=== PATIENT | male | born 1950 | race Caucasian/White ===

== ENCOUNTER → 2022-08-02 10:11 | Outpatient (CLI) | payer MEDICARE, SELFPAY ==
[2022-08-02 11:12] LABS: Add Manual Diff / Slide Review NO; Basophils Absolute Auto 0 /uL (0-100); Basophils Percent Auto 0.6 % (0-2); Eosinophils Absolute Auto 100 /uL (0-450); Eosinophils Percent Auto 3.5 % (2-4); Hematocrit 43.4 % (41-53); Hemoglobin 14.8 g/dL (13.5-17.5); Lymphocytes Absolute Auto 800 /uL (1100-4500); Lymphocytes Percent Auto 18.9 % (25-40); Mean Corpuscular Hemoglobin 28.6 PG (26-34); Mean Corpuscular Volume 84.1 fL (80-100); Monocytes Absolute Auto 400 /uL (0-900); Monocytes Percent Auto 9.7 % (3-14); Neutrophils Absolute Auto 2800 /uL (1500-7000); Neutrophils Percent Auto 67.3 % (50-75); Platelet Count 173 X10^3/uL (150-400); Red Blood Cell Count 5.16 X10^6/uL (4.5-5.9); White Blood Cell Count 4.2 X10^3/uL (4.5-11.0)
[2022-08-02 11:30] LABS: BUN Creatinine Ratio 15.8 (6-22); Blood Urea Nitrogen 21 mg/dL (9-20); Carbon Dioxide 30 mmol/L (22-32); Chloride 101 mmol/L (98-107); Estimated Glomerular Filt Rate 57 mL/min (>60); Glucose 94 mg/dL (80-110); HEMOLYSIS < 15 (0-50); Potassium 4.2 mmol/L (3.4-5.1); Sodium 136 mmol/L (137-145)
== END ==
PROVIDERS: PCP Family Medicine; Referring Provider Orthopaedic Surgery Orthopaedic Surgery of the Spine; Visit Provider Orthopaedic Surgery Orthopaedic Surgery of the Spine
DX: Z01.818 Encounter for other preprocedural examination (principal); Z01.812 Encounter for preprocedural laboratory examination
CPT/HCPCS: 36415; 80048; 85025; 93005

== ENCOUNTER 2022-08-18 11:13 | Outpatient (CLI) | payer MEDICARE, SELFPAY ==
[2022-08-18 14:09] LABS: COVID19 -Nasal RAPID Negative (Negative)
== END 2022-08-20 17:45 | disposition home or self-care (01) ==
LOC: LAB 11:14
PROVIDERS: PCP Family Medicine; Referring Provider Orthopaedic Surgery Orthopaedic Surgery of the Spine; Visit Provider Orthopaedic Surgery Orthopaedic Surgery of the Spine
DX: Z20.822 Contact with and (suspected) exposure to COVID-19 (principal)
CPT/HCPCS: 87635; C9803

== ENCOUNTER 2022-08-20 13:00 | Inpatient (IN) | payer MEDICARE, SELFPAY ==
[2022-08-13 10:51] VITALS: BMI 36.2
[2022-08-20] VITALS (9 sets, daily range): BP systolic 136–156; BP diastolic 61–92; PULSE 69–81; RESP 8–16; TEMP 36.2–36.3; O2SAT 94–98; BMI 35.9
--- NOTE | 2022-08-20 | DI.RAD.S_ITS ---
PROCEDURE: XR LUMBAR SPINE 2-3V INDICATIONS: L3-4 L4-5 LAMINECTOMY TECHNIQUE: 2 views of the lumbar spine were acquired. COMPARISON: [facility], MR, MR LUMBAR SPINE WITHOUT CONTRAST, 07/23/2022, 14:14. Outside Film, CR, XR LUMBAR SPINE 2 OR 3 VIEWS, 06/23/2022, 11:16. [facility] Outside [facility], CR, XR LUMBAR SPINE 2 OR 3 VIEWS, 06/23/2022, 11:16. FINDINGS: There is a surgical port at level of L5-S1. IMPRESSION: Surgical port at L5-S1. Dictated by: Benito Tanner M.D. on 08/22/2022 at 17:25 Approved by: Benito Tanner M.D. on 08/22/2022 at 17:25
[2022-08-20] MEDS: LACTATED RINGERS 1,000 ML 42 ML IV (13:41)
--- NOTE | 2022-08-20 14:13 | PM.PREOP ---
Pre-operative Note COVID-19 COVID-19 status: Negative Result date/Date tested (Pos, Neg/Pending): 08/19/22 Criteria for continued procedure: Expected advancement of disease process, Possibility delay results in more complex future surgery or treatment, Increased loss of function, Continuing or worsening of significant or severe pain, Deterioration of the patient's condition or overall health and Delay expected to result in less-positive ultimate med/surg outcome Interval Note History & Physical reviewed/Exam performed by Physician: Yes Changes to H&P: No
[2022-08-20] MEDS: CEFAZOLIN 2 GM/100 ML PREMIX 100 ML IV (14:40)
--- NOTE | 2022-08-20 15:09 | SUR.OPER ---
Prone on spine table, head in foam head support, padded chest and pelvic supports, gel pad at knees, lower legs supported by pillows; nipples, genitalia and toes free of pressure, arms secured on foam padded arm boards at <90 degrees abduction. Tape over blanket at thigh secured to table.
[2022-08-20] MEDS: BUPIVACAINE 0.25% (PF) 60 ML, EPINEPHrine 0.3 MG INJ (15:21)
[2022-08-20] MEDS: ACETAMINOPHEN IV 1,000 MG/100 ML VIAL 400 MG IV (15:36)
--- NOTE | 2022-08-20 15:53 | PM.OP.1 ---
Operative Date/Time/Diagnoses Date of procedure: 08/20/22 Time of procedure: 15:00 Pre-op diagnosis: 1. 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 L4-5 laminectomy 2. L3-4 left hemilaminectomy 3. Utilization of microsurgical technique and operating microscope Same procedure as scheduled: Yes Indications: Patient has been having chronic back pain and worsening lumbar radiculopathy and neurogenic claudication. Patient failed multiple conservative management with worsening pain weakness and numbness in his lower extremity. Patient has been having difficulty performing activity of daily living. After discussing risks benefits of treatment options, patient elected proceed with surgery. Surgeon: Yun Handy [employer] Plans Staff Officer: Jessica Clifford Click Yes if Unassisted: No Anesthesia Type: General Operative Notes Closure Type: primary Specimen(s): none sent Estimated Blood Loss (mL): 5 Blood products transfused: none Procedure in detail: Patient was seen in the preoperative area. Risks and benefits of the surgery was discussed with the patient. Informed consent was obtained from the patient and placed in the chart. Surgical site was marked. Patient was taken to the operative room. General anesthesia was administered. Prophylactic antibiotic was given to the patient less than 30 min before the incision was made. Patient was placed into a prone position on the Ward table. Patient's back was then prepped and draped in the sterile fashion. Time-out was performed at this time. Using AP and lateral C-arm imaging the interval between L3-4 L4-5 was identified and marked on patient's back. A 1 inch incision 1 in from midline was made on the left side. The fascia was incised in line with skin incision. Globus MARS retractors was placed inside the incision and docked onto the L4 lamina. Using microsurgical technique and operating microscope, a L4 laminectomy was performed using a Kerrison rongeur. Liagamentum flavum was resected at the site of the laminotomy. Either side of the dura was exposed. Bilateral partial facetcomies was performed to further decompress the lateral recess. After the laminectomy was completed, the area medial lateral superior and inferior to the area of the laminectomy was inspected and explored using a micro curette. No other impinging structure was identified. The mars retractor was redirected over the L3-4 interval. Using microsurgical technique and operative microscope a hemilaminectomy was performed at L3-4 level. Kerrison rongeur a micro curette was used to free up the ligamentum flavum which was resected during the process of a hemilaminectomy for the further decompressing the epidural space and lateral recess. Patient was found to have significant amount of epidural lipomatosis causing additional spinal stenosis at both levels. As epidural lipomas were removed at the site of the laminectomy a hemilaminectomy. The wound was then irrigated with sterile normal saline. 40 mg Depo-Medrol was placed into the epidural space. The deep fascia was closed with 1-0 Vicryl. The subcutaneous tissue was closed with 2-0 Vicryl. The skin was closed with skin adrian. Patient tolerated the procedure well. There were no complications. Patient was transferred recovery room in stable condition. Complications: none Post-operative Condition: stable Disposition: PACU Plan for aftercare: discharge to home
== END 2022-08-20 17:36 | disposition home or self-care (01) | DRG 520 ==
LOC: AC 16:22 → SSU 10-08 15:15
PROVIDERS: Admitting Provider Orthopaedic Surgery Orthopaedic Surgery of the Spine; PCP Family Medicine; Referring Provider Orthopaedic Surgery Orthopaedic Surgery of the Spine; Visit Provider Orthopaedic Surgery Orthopaedic Surgery of the Spine
PROC: 01NB0ZZ Release Lumbar Nerve, Open Approach (ICD-10-PCS; principal; 2022-08-20 14:45)
DX: M48.062 Spinal stenosis, lumbar region with neurogenic claudication (principal); M47.816 Spondylosis without myelopathy or radiculopathy, lumbar region; E88.2 Lipomatosis, not elsewhere classified
CPT/HCPCS: 72100; 76000; 82962; J0131; J0171; J0690; J1100; J1170; J2405; J2704; J2920; J3010

== ENCOUNTER → 2022-09-27 11:08 | Outpatient (CLI) | payer MEDICARE, SELFPAY ==
[2022-09-27 12:09] LABS: COVID19 -Nasal RAPID Negative (Negative)
== END ==
PROVIDERS: PCP Family Medicine; Referring Provider Orthopaedic Surgery Orthopaedic Surgery of the Spine; Visit Provider Orthopaedic Surgery Orthopaedic Surgery of the Spine
DX: Z20.822 Contact with and (suspected) exposure to COVID-19 (principal)
CPT/HCPCS: 87635; C9803

== ENCOUNTER 2022-09-29 12:32 | Inpatient (IN) | payer MEDICARE, SELFPAY ==
[2022-09-26 07:32] VITALS: BMI 36.2
[2022-09-29] VITALS (13 sets, daily range): BP systolic 82–158; BP diastolic 47–90; PULSE 58–77; RESP 11–23; TEMP 36.2–36.7; O2SAT 92–98; BMI 36.2
[2022-09-29] MEDS: GABAPENTIN 300 MG CAPSULE PO (13:22)
[2022-09-29] MEDS: LACTATED RINGERS 1,000 ML 42 ML IV ×3 (13:23→18:29)
[2022-09-29] MEDS: CEFAZOLIN 2 GM/100 ML PREMIX 100 ML IV ×2 (15:00→21:59)
[2022-09-29] MEDS: BUPIVACAINE LIPOSOME 266 MG/20 ML VIAL INJ (15:22)
[2022-09-29] MEDS: BUPIVACAINE 0.25% (PF) 60 ML, EPINEPHrine 0.3 MG INJ (15:22)
[2022-09-29] MEDS: ACETAMINOPHEN IV 1,000 MG/100 ML VIAL 400 MG IV (16:39)
--- NOTE | 2022-09-29 17:33 | DI.RAD.S_ITS ---
PROCEDURE: XR LUMBAR SPINE 2-3V INDICATIONS: L4-5 TLIF TECHNIQUE: 2 views of the lumbar spine were acquired. COMPARISON: [facility], CR, XR LUMBAR SPINE 2-3V, 08/20/2022, 15:07. FINDINGS: L4-L5 pedicle screw fixation with intervertebral body spacer. IMPRESSION: Intraoperative guidance provided. Dictated by: Tristan Esquivel M.D. on 09/29/2022 at 17:30 Approved by: Tristan Esquivel M.D. on 09/29/2022 at 17:31
--- NOTE | 2022-09-29 17:55 | P.OP_ITS ---
Operative Date/Time/Diagnoses Date of procedure: 09/29/22 Time of procedure: 14:00 Pre-op diagnosis: 1. L4-5 spinal stenosis with neurogenic claudication Post-op diagnosis: same Procedure & Clinicians Procedure: 1. L4-5 Postero-lateral and posterior interbody fusion 2. L4-5 interbody cage placement. 3. L4-5 decompressive laminectomy with bilateral facetecomies 4. L4-5 Posterior non-segmental instrumentation 5. [place] of bone marrow from iliac crest 6. Utilization of microsurgical technique and operating microscope Same procedure as scheduled: Yes Indications: Patient has been having chronic back pain and worsening lumbar radiculopathy and symptoms of neurogenic claudication. He is status post recent L4-5 decompression with 2 weeks of symptomatic relief and worsening of the symptoms over the last 2 and half weeks. Repeat MRI identifies severe spinal stenosis with epidural scarring status post decompression consistent with his current symptoms. Patient failed multiple conservative management with worsening pain weakness and numbness in his lower extremity. Patient has been having difficulty performing activity of daily living. After discussing risks benefits of treatment options, patient elected proceed with surgery. Surgeon: Yun Handy Etcher Enameling: Keira Pal Click Yes if Unassisted: No Anesthesia Type: General Operative Notes Closure Type: primary Specimen(s): none sent Prosthetic devices, grafts, tissues, transplants, or devices: Globus revolve screws, Rise cage Estimated Blood Loss (mL): 50 Blood products transfused: none Procedure in detail: Patient was seen in the preoperative area. Risks and benefits of the surgery was discussed with the patient. Informed consent was obtained from the patient and placed in the chart. Surgical site was marked. Patient was taken to the operative room. General anesthesia was administered. Prophylactic antibiotic was given to the patient less than 30 min before the incision was made. Patient was placed into a prone position on the Ward table. Patient's back was then prepped and draped in the sterile fashion. Time-out was performed at this time. Using AP and lateral C-arm imaging the interval between L4-5 was identified and marked on patient's back. A 2 inch incision 2 in from midline was made on the left side first. The fascia was incised in line with skin incision. Globus MARS retractors was placed inside the incision and docked onto the L4 lamina. Using microsurgical technique and operating microscope, a L4 laminectomy and L4-5 facetectomy was performed using a Kerrison rongeur. The disc space at L4-5 was identified. And a total diskectomy was performed at L4-5 level. The endplates were decorticated using a rasp and shaver. The total diskectomy and decortication was performed at L4-5 level in order to to accomplish a L4-5 fusion. The local bone from the laminectomy and facetectomy was saved for local bone grafting. Patient was found have severe central and neural foramen stenosis which was fully decompressed after the laminectomy and facetectomy. After the total diskectomy and decortication was completed, Trifecta bone graft material was combined with local bone that was harvested earlier. At this time, a separate skin is incision was made over the iliac crest. A Jamshidi needle was inserted into the iliac crest through a separate skin incision. 5 cc of bone marrow aspiration was obtained through the separate skin incision using a Jamshidi needle from the iliac crest. The bone marrow aspiration was combined with local bone and the Trifecta bone grafting material. The bone grafting material was placed into the L4-5 interbody space along with a expandable cage. The cage was expanded to its maximum height using the torque limiting screwdriver. At this time a mirror image incision was made on the right side. The fascia was incised in line with the skin incision. Globus MARS retractor was inserted and docked onto the L4-5 posterolateral gutter. Using the power drill, posterior- lateral decortication was performed at L4-5 level until bleeding cortical bone was identified. The remaining bone grafting material was placed into the L4-5 posterior lateral gutter he order to accomplish posterolateral fusion at the L4- 5 level. Using the double C-arm technique, pedicle screws were placed into the L4-5 pedicles bilaterally. This was done by placing the Jamshidi needle into the pedicles, then placing the guidewires over the Jamshidi needle, and finally placing the cannulated screws over the guidewires bilaterally. After the pedicle screws were placed, 2 titanium rods was locked into the heads of the pedicle screws using locking caps and torque limiting screwdriver. After all the hardware was placed, and confirmed with AP and lateral C-arm imaging, the wound was then irrigated with sterile normal saline and packed with Ray-Xander gauze for 3 min to accomplish hemostasis. After the gauze was removed the deep fascia was closed with #1 Vicryl suture. The subcutaneous layer was closed with 2-0 Vicryl. The skin was closed with skin adrian. Patient tolerated the procedure well. There were no complications. Complications: none Post-operative Condition: stable Disposition: PACU Plan for aftercare: Admit to inpatient hospital
[2022-09-29] MEDS: ONDANSETRON 4 MG/2 ML INJ IV (18:39)
[2022-09-29] MEDS: hydrOXYzine 50 MG/ML INJ 25 MG IM (18:39)
[2022-09-29] MEDS: HYDROMORPHONE 2 MG INJ IV ×2 (18:43→18:58)
[2022-09-29] MEDS: HYDROMORPHONE 2 MG TABLET PO (19:12)
[2022-09-29] MEDS: SODIUM CHLORIDE 0.9% 1,000 ML 100 ML IV (19:44)
[2022-09-29] MEDS: ONDANSETRON 4 MG/2 ML INJ (19:44)
[2022-09-29] MEDS: HYDROCODONE/ACET 5/325 TABLET 2 TAB PO (19:53)
--- NOTE | 2022-09-29 20:00 | PC.NURSE ---
Patient admitted for observation after back surgery. Arrived from PACU on 2L NC, A&Ox4, c/o 4/10 pain, able to move all extremities. at bedside on arrival. Patient able to answer admission questions. Call light remains within reach.
[2022-09-29] MEDS: SENNOSIDES 8.6 MG TABLET 17.2 MG PO (21:59)
[2022-09-29] MEDS: DOCUSATE 100 MG CAPSULE PO (21:59)
[2022-09-30 02:34] VITALS: BP 130/61; PULSE 68; RESP 18; TEMP 36.3; O2SAT 97
[2022-09-30] MEDS: PANTOPRAZOLE DR 40 MG TABLET PO (05:39)
[2022-09-30] MEDS: TAMSULOSIN 0.4 MG CAPSULE 0.8 MG PO (05:39)
[2022-09-30] MEDS: SODIUM CHLORIDE 0.9% 1,000 ML 100 ML IV (06:07)
[2022-09-30] MEDS: CEFAZOLIN 2 GM/100 ML PREMIX 100 ML IV (06:07)
--- NOTE | 2022-09-30 07:35 | P.DS_ITS ---
History of Present Illness History of Present Illness Date Patient Seen: 09/30/22 Time Patient Seen: 07:35 Chief complaint: TLIF Narrative: Patient is complaining of moderate low back pain this morning. He denies any new numbness or tingling, he has history of peripheral neuropathy bilaterally. He does note his weakness prior to surgery has improved. He has a history of BPH and is having some difficulty with urination, although this is improving since he received his tamsulosin. Overall he is feeling well like to be discharged home. Discharge Providers Provider Date of admission: 09/29/22 12:32 Discharge Date: 09/30/22 Primary care physician: Alek Vásquez MD Consults: 09/29/22 13:04 Consult to Respiratory Therapy Evaluate & Treat Comment: Physician Instructions: Evaluate and treat 09/29/22 19:22 Consult to Occupational Therapy Evaluate & Treat Comment: Physician Instructions: Evaluate and treat Consult to Physical Therapy Evaluate & Treat Comment: Physician Instructions: Evaluate and Treat Discharge provider: Jessica Clifford PA-C Summary Hospital Course Discharge Diagnosis: L4-5 spinal stenosis with neurogenic claudication Hospital Course: Operative Date/Time/Diagnoses Date of procedure: 09/29/22 Time of procedure: 14:00 Procedure & Clinicians Procedure: 1. L4-5 Postero-lateral and posterior interbody fusion 2. L4-5 interbody cage placement. 3. L4-5 decompressive laminectomy with bilateral facetecomies 4. L4-5 Posterior non-segmental instrumentation 5. [place] of bone marrow from iliac crest 6. Utilization of microsurgical technique and operating microscope Same procedure as scheduled: Yes Indications: Patient has been having chronic back pain and worsening lumbar radiculopathy and symptoms of neurogenic claudication.? He is status post recent L4-5 decompression with 2 weeks of symptomatic relief and worsening of the symptoms over the last 2 and half weeks.? Repeat MRI identifies severe spinal stenosis with epidural scarring status post decompression consistent with his current symptoms. Patient failed multiple conservative management with worsening pain weakness and numbness in his lower extremity.? Patient has been having difficulty performing activity of daily living.? After discussing risks benefits of treatment options, patient elected proceed with surgery. Surgeon: Yun Handy Paster Hat Lining: Keira Pal Click Yes if Unassisted: No Anesthesia Type: General Operative Notes Closure Type: primary Specimen(s): none sent Prosthetic devices, grafts, tissues, transplants, or devices: Globus revolve screws, Rise cage Estimated Blood Loss (mL): 50 Blood products transfused: none Status at Discharge Cognitive/behavioral status at discharge: at baseline, oriented Functional status at discharge: uses cane/walker Overall status at discharge: patient is progressing back to baseline Exam Vital Signs (past 8 hours): - 09/30/22 02:34 Temperature 97.4 F L Pulse Rate 68 Respiratory Rate 18 Blood Pressure 130/61 Pulse Oximetry 97 Oxygen Flow Rate 2 Oxygen Delivery Method Nasal Cannula Oxygen Flow Rate 2 Narrative Exam Narrative: Pleasant 72-year-old male, resting comfortably in bed, no acute distress. Dressing is clean, dry, intact. No surrounding erythema or induration. Bilateral lower extremity: Motor functions are grossly intact, strength is 5/5 with dorsiflexion, plantar flexion, hip flexion. Sensation is grossly intact to light touch. Bilateral calves are soft and nontender to palpation. Objective Labs Labs: Laboratory Results - last 24 hr 09/29/22 20:01 Nasal Screen MRSA (PCR) Negative for mrsa [facility] Medical History HTN (hypertension) Lumbar stenosis with neurogenic claudication Sleep apnea Spondylosis of lumbar spine Surgical History Hx of laminectomy (08/20/22) Social History household members: spouse Smoking Status: Never smoker alcohol intake: current Discharge Assessment & Plan Assessment and Plan Assessment: Stable status post L4-5 TLIF; L4-5 decompressive laminectomy with bilateral fa cetecomies -h/o BPH and periphreal neuropathy Plan of Treatment: -mobilize with PT/OT. Weightbearing as tolerated with front wheel walker or cane. No bending, lifting, twisting x6 weeks -continue with multimodal pain management. The patient has an allergy to oxycodone to tolerate hydrocodone well. He notes he has a prescription of hydrocodone at home from his prior surgery. -continue with tamsulosin for his BPH -DC home today once cleared by PT/OT Discharge Plan Discharge Plan Patient Disposition: Home Discharge orders & Medications Prescriptions: New hydrocodone-acetaminophen 5-325 mg Tablet See Rx Instructions .ROUTE .COMPLEX PRN (Reason: Pain, Severe (7-10)) Qty: 1 0RF Rx Instructions: Take 1-2 tablets by mouth every 4 hours as needed for moderate to severe postop pain -do not exceed more than 3000 mg of acetaminophen daily, from all sources docusate sodium 100 mg Capsule 100 mg PO BID PRN (Reason: Constipation from narcotic pain meds) Qty: 30 0RF Continued losartan-hydrochlorothiazide 100-25 mg tablet 1 tab PO DAILY tamsulosin 0.4 mg capsule 0.8 mg PO DAILY esomeprazole magnesium 20 mg Capsule,Delayed Release(Dr/Ec) 20 mg PO DAILY Follow up/Referrals: Alek Vásquez MD [Primary Care Provider] - Yun Handy MD [Physician] - (10-14 days for postoperative visit) Diet/Activity/Treatments Diet: Diet as Tolerated Other treatments: Dressing/Wound care: -Keep dressing in place until postoperative follow-up office visit. -Okay to shower. Keep wound out of direct water stream. Can use PressNSeal pl astic wrap to protect from shower stream. No soaking or submerging until all the scabs fall off (approximately 6 weeks). -Please call the office if dressing becomes wet, soiled, or saturated. Activities: -Limit bending, lifting, twisting x6 weeks. No deep bending (more than 90 degrees) or twisting at the waist. No lifting > 20 pounds. -Walk frequently. -Weight-bearing as tolerated. Use front wheeled walker, and progress to cane when safe. -Continue with home exercises as directed by your physical therapist. -Ice your incision as needed for pain/inflammation/swelling. Protect your skin with a folded pillowcase. -Incentive Spirometer (breathing device from hospital): 5-10xs every hour while awake for the first 1-2 weeks. Follow-up: -Follow-up with your surgeon or PA in the office in 10-14 days after surgery. -Follow-up with your surgeon 6 weeks postoperatively. Call the office if you have chest pain, shortness of breath, significant swelling that will not resolve with elevating, fever over 101?, significantly worsening pain, or are concerned you might need to go to the Emergency Room. [facility]: [phone] Skin/Wound/Dressing Care Report to your healthcare provider any signs of infection, such as:: chills, fever, night sweats, unusual drainage and unusual redness Visit Report/Discharge Packet Instructions: DI for Prescription Opioid Use, DI for Transforaminal Lumbar Interbody Fusion Stand Alone Forms: Surgery Discharge Discharge Data Primary Care Provider: Alek Vásquez VTE Deep Vein Thrombosis/Pulmonary Embolism Present on Admission: No
[2022-09-30 08:24] VITALS: BP 136/68; PULSE 72; RESP 16; TEMP 37.6; O2SAT 95
[2022-09-30 08:30] VITALS: BP 136/68; PULSE 75
[2022-09-30] MEDS: DOCUSATE 100 MG CAPSULE PO (08:30)
[2022-09-30] MEDS: hydroCHLOROthiazide 25 MG TABLET PO (08:30)
[2022-09-30] MEDS: LOSARTAN 50 MG TABLET 100 MG PO (08:30)
[2022-09-30] MEDS: HYDROCODONE/ACET 5/325 TABLET 2 TAB PO ×2 (08:31→13:15)
--- NOTE | 2022-09-30 09:52 | OT.IP.EVAL ---
Current Diagnoses Spinal stenosis, lumbar region with neurogenic claudication (09/29/22) Postlaminectomy syndrome, not elsewhere classified (09/29/22) Surgery Performed Operation Date: 09/29/22 14:15 Actual Procedures p L4-5 TLIF - Yun Handy MD Past Medical History (Last Reviewed 09/30/22 @ 07:38 by Jessica Clifford PA-C) HTN (hypertension) Lumbar stenosis with neurogenic claudication Sleep apnea Spondylosis of lumbar spine Surgical History (Last Reviewed 09/30/22 @ 07:38 by Jessica Clifford PA-C) Hx of laminectomy (08/20/22) Occupational Therapy Inpatient Evaluation/Re-Eval M1 PT/OT-IP Prior Functional Status Start: 09/30/22 12:22 Freq: NEEDED Status: Active Protocol: Document 09/30/22 10:00 AB (Rec: 09/30/22 12:34 AB [id number]) Medical Review Prior Functional Status Medical History Reviewed Yes Communication agreeable to do PT Mobility and Gait pt stated that he is independent with all mobilities and ambulation without AD Social History Household Members spouse Living Arrangements House Number of Floors (Floors) One Floor Number of Stairs To Enter/Railing? 2 steps without rails to enter Home Environment High Toilet,Walk in Shower, Built-In Shower Seat Additional Social History Comment stated that his spouse Bernice will be able to assist him M2 OT-IP Current Condition Start: 09/30/22 12:26 Freq: Status: Active Protocol: Document 09/30/22 09:03 [facility] (Rec: 09/30/22 12:50 [facility] [id number]) Occupational Therapy Current Condition Current Condition Evaluation Date 09/30/22 Treatment Diagnosis S/p L4-5 TLIF Diagnosis Onset Date 09/29/22 Post Operative Precautions Lumbar Precautions Log Roll,No Twisting,Limit Bending,Lifting Restriction of 10 lbs,Gait Belt above Incisional Area M3 OT- IP Subjective and Pain Start: 09/30/22 12:26 Freq: Status: Active Protocol: Document 09/30/22 09:03 [facility] (Rec: 09/30/22 12:50 [facility] [id number]) OT- Subjective Occupational Therapy Visit Type Type Initial Evaluation Visit Start Time 09:03 Visit Stop Time 09:52 Total Visit Minutes 49 Occupational Therapy Visit Comments Patient Comments Pt agreed to get up for OT eval. Patient/Caregiver Goals To go home. OT Pain Assessment Pain When Pain Assessed At Rest Pain Present Pain Present Pain Reported Location Back Intensity 2 Scale Used Numeric (0 - 10) M4 OT- IP ADL's Start: 09/30/22 12:26 Freq: Status: Active Protocol: Document 09/30/22 09:03 [facility] (Rec: 09/30/22 12:50 [facility] [id number]) OT [id number] Comments OT Self-Feeding Comments NOt at meal time. OT ADL-Grooming Comments OT Grooming Comments Pt not wanting to do at this time. OT ADL-Oral Care General Eval Oral Care Ability Independent Areas of Assistance Retrieving/Set-Up of Items Comments Oral Care Comments Pt able to do while seated. Educated when standing best to hinge at his hips or spit into a cup to best follow his back precautions. OT ADL-Dressing Comments OT Dressing Comments Pt wears flip flops and recommended to wear better fitting shoes to prevent from tripping and falling. Pt states his to just assist for all needs at this time. Able to show pt LB dressing equipment and pt had no interest to try or do it on his own. OT ADL-Toileting Comments OT Toileting Comments Pt able to use urinal in bed as not able to wait for OT to get a taller walker prior to getting up. OT ADL-Bathing Comments OT Bathing Comments Pt wanting to shower at home at this time. Pt states that his to assist. M5 OT- IP IADL's Start: 09/30/22 12:26 Freq: Status: Active Protocol: Document 09/30/22 09:03 [facility] (Rec: 09/30/22 12:50 [facility] [id number]) OT-Instrumental Activities of Daily Living Home Safety Awareness Awareness of Need for Assistance at Home Good Awareness Ability to Problem Solve Emergency Able to Problem Solve Situations Medication Management Medication Management No Deficits Identified Money Management Money Management No Deficits Identified Meal Preparation Meal Preparation Caregiver Provides Assist Kiln Car Repairer Kiln Car Repairer Caregiver Provides Assist M6 OT- IP Functional Cognition Start: 09/30/22 12:26 Freq: Status: Active Protocol: Document 09/30/22 09:03 [facility] (Rec: 09/30/22 12:50 [facility] [id number]) Cognitive Factors Limiting Selfcare Function Cognitive Ability Level of Alertness Alert Patient Orientation Name,Age,Birthday,Month,Date, Year,Day of Week,Place, Situation Attention Span Ability Capable of Focused Attention, Capable of Sustained Attention Ability to Follow Commands Able to Follow Multi-Step Commands Memory Description No Deficits Noted Safety Awareness Decreased Ability to Apply Precautions Cognitive Comments Cognitive Assessment Comments Pt able to follow commands and just needing initial vc for reminders to incorporate his back precautions for ADl and mobility needs. OT- Vision and Hearing OT- Hearing Assessment OT- Hearing Assessment WFL OT- Vision Assessment Visual Acuity Glasses For Reading M7 OT- IP Mobility and Balance Start: 09/30/22 12:26 Freq: Status: Active Protocol: Document 09/30/22 09:03 [facility] (Rec: 09/30/22 12:50 [facility] [id number]) OT- Bed Mobility Assessment Rolling Level of Assistance Contact Guard Assistance Supine to Sit Supine to Sit Assist Contact Guard Assistance OT-Transfer Assessment Sit to and From Stand Sit to and from Stand Contact Guard Assistance Transfers Transfer Ability Standby Assistance,Contact Guard Assistance Technique Transfer Destination Bed,Chair Devices Transfer Assistive Devices Gait Belt,Front Wheeled Walker Comments Mobility Comments CGA for bed mobility and use of bed rail to assist initially. Pt states has a bed side table to assist. Sit to stand from high bed CGA to FWW and able to walk to the recliner. Pt needing heavy use of his arms on the FWW. Pt states to look into getting a FWW. OT- Balance Assessment Sitting Balance and Reactions Static Sitting Balance Ability Normal Dynamic Sitting Balance Ability Good Standing Balance and Reactions Static Standing Balance Ability Good Dynamic Standing Balance Ability Fair M8 OT- IP Objective Assessments Start: 09/30/22 12:26 Freq: Status: Active Protocol: Document 09/30/22 09:03 [facility] (Rec: 09/30/22 12:50 [facility] [id number]) OT-Muscle Tone Assessment Muscle Tone WNL Yes M9 OT- IP Assessment and Plan Start: 09/30/22 12:26 Freq: Status: Active Protocol: Document 09/30/22 09:03 [facility] (Rec: 09/30/22 12:50 [facility] [id number]) OT Summary Assessment and Plan Potential Rehabilitation Potential Excellent Analytic Complexity at Evaluation Low Summary OT Impairments Pain,Functional Mobility, Dressing,Toileting,Bathing, Toilet Transfers,Shower Transfers Progress Towards Goals Progressing Toward Goals,Slow Progress due to Pain Assessment Summary Pt low complexity and main barriers are step, pain, and occasional vc for incorporate his back precautions and to slow down. Pt states has a supportive to assist for his needs as pt not wanting to get any LB dressing equipment as insists that his will just assist him. Pt to go home with his when medically stable. Goals Grooming Goal Independent Dressing Goal Minimal Assistance Toileting Goal Independent Bathing Goal Standby Assistance Toilet Transfer Goal Independent Shower Transfer Goal Standby Assistance Days to Meet Goals 5 Frequency of Treatment Frequency Of Treatment Once a Day Treatment Plan OT Treatment Plan ADL Training,Functional Cognition Training,Patient/ Family Education,Discharge Planning Other Treatment Recommendations and Next shower if still here Treatment Focus Discharge Recommendations OT Discharge Recommendations Home with Assistance Home Equipment Needs FWW Transportation Needs at Discharge Private Vehicle
--- NOTE | 2022-09-30 10:00 | PT.IIE ---
Current Diagnoses Spinal stenosis, lumbar region with neurogenic claudication (09/29/22) Postlaminectomy syndrome, not elsewhere classified (09/29/22) Surgery Performed Operation Date: 09/29/22 14:15 Actual Procedures p L4-5 TLIF - Yun Handy MD Surgical History (Last Reviewed 09/30/22 @ 07:38 by Jessica Clifford PA-C) Hx of laminectomy (08/20/22) Medical History (Last Reviewed 09/30/22 @ 07:38 by Jessica Clifford PA-C) HTN (hypertension) Lumbar stenosis with neurogenic claudication Sleep apnea Spondylosis of lumbar spine Physical Therapy Inpatient Evaluation/Re-Eval M1 PT/OT-IP Prior Functional Status Start: 09/30/22 12:22 Freq: NEEDED Status: Active Protocol: Document 09/30/22 10:00 AB (Rec: 09/30/22 12:34 AB [id number]) Medical Review Prior Functional Status Medical History Reviewed Yes Communication agreeable to do PT Mobility and Gait pt stated that he is independent with all mobilities and ambulation without AD Social History Household Members spouse Living Arrangements House Number of Floors (Floors) One Floor Number of Stairs To Enter/Railing? 2 steps without rails to enter Home Environment High Toilet,Walk in Shower, Built-In Shower Seat Additional Social History Comment stated that his spouse Bernice will be able to assist him M2 PT-IP Current Condition Start: 09/30/22 12:22 Freq: NEEDED Status: Active Protocol: Document 09/30/22 10:00 AB (Rec: 09/30/22 12:34 AB [email or web address]) Physical Therapy Current Condition Current Condition Evaluation Date 09/30/22 Treatment Diagnosis s/p L4-5 TLIF; difficulty in walking Onset Date 09/29/22 M3 PT-IP Subjective Start: 09/30/22 12:22 Freq: NEEDED Status: Active Protocol: Document 09/30/22 10:00 AB (Rec: 09/30/22 12:34 AB [email or web address]) Subjective Physical Therapy Visit Type Type Initial Evaluation Visit Start Time 10:00 Visit Stop Time 10:38 Total Visit Minutes 38 Number of PASTRYCOOK Visits 0 Physical Therapy Visit Comments Patient Comments agreeable to do PT Therapy Pain Assessment Pain When Pain Assessed At Rest Pain Present Pain Present Pain Reported Location Back Intensity 3 Scale Used Numeric (0 - 10) Pain Behaviors Guarding,Holding Area Pain Management Techniques Apply Cold,Distraction, Modification of Treatment,Re- positioning,Timing of Activity with Medications M4 PT-IP Mobility and Gait Start: 09/30/22 12:22 Freq: NEEDED Status: Active Protocol: Document 09/30/22 10:00 AB (Rec: 09/30/22 12:34 AB [id number]) PT-Bed Mobility Assessment Rolling Level of Assist Standby Assistance Supine to Sit Supine to Sit Standby Assistance Sit to Supine Sit to Supine Standby Assistance PT-Transfer Assessment Sit to and From Stand Sit to and from Stand Contact Guard Assistance, Minimal Assistance,1 Person Assistance,Use of Upper Extremities Equipment Transfer Assistive Device Gait Belt,Front Wheeled Walker Orthotic/Prosthetic Devices or Brace: No Transfers Transfer Destination Bed,Chair Transfer Technique ambulated Transfer Ability Level of Assist Contact Guard Assistance, Minimal Assistance,1 Person Assistance,Use of Upper Extremities Comments Mobility Comments pt sitting on chair. reviewed back precautions and pt recalled 2/3. completed sit to stand from chair min A and max cues. repeated x 2 min A and cues. presents with unsteady transition from sitting to standing using FWW for support. complete ambulated to EOB ~ 12 ft using FWW CGA. completed sit <> supine log roll SBA and cues. completed sit to stand from EOB x 3 reps min A and cues and ambulated back to chair using FWW CGA. presents with unsteady step to shuffling gait. positioned pt on the chair. call light and table placed within reach. Caregiver training set up at 1pm today with spouse Bernice. Gait Assessment Gait Gait Assistance Required: Contact Guard Assist Distance (Feet) 12 Able to Maintain Weight Bearing Status Yes During Gait Assistive Devices Assistive Device Gait Belt,Front Wheeled Walker Orthotic/Prosthetic Devices or Brace: No Gait Deviations General Gait Pattern Antalgic,Decreased Stride Length,Decreased Feet Clearance,Step-to Gait Factors Limiting Gait Function Factors Limiting Gait Function Decreased Activity Tolerance, Decreased Strength,Difficulty Following Directions,Limited Range of Motion,Pain,Poor Balance,Poor Safety Awareness PT-Balance Assessment Sitting Balance and Reactions Static Sitting Balance Ability Good Dynamic Sitting Balance Ability Good Standing Balance and Reactions Static Standing Balance Ability Fair Dynamic Standing Balance Ability Fair Device Used FWW M5 PT-IP Objective Assessments Start: 09/30/22 12:22 Freq: NEEDED Status: Active Protocol: Document 09/30/22 10:00 AB (Rec: 09/30/22 12:34 AB [id number]) Orientation Orientation/Cognition Level of Alertness Alert Orientation Name,Place,Situation Language Function Ability Hard of Hearing Safety Awareness Decreased Safety Awareness Memory Description Short Term Impaired Gross Range of Motion Lower Extremity ROM Assessment Within Functional Limits Strength Lower Extremity Strength Assessment Within Functional Limits Coordination Assessment Gross Coordination Gross Coordination WNL Sensation Assessment Sensation Gross Sensation Left LE Impaired Light Touch Impaired Proprioception (Position) Impaired Comments Sensation Comments has peripheral neuropathy Muscle Tone Muscle Tone WNL Yes M6 PT-IP Treatment Start: 09/30/22 12: Freq: NEEDED Status: Active Protocol: Document 09/30/22 10:00 AB (Rec: 09/30/22 12:34 AB [id number]) Physical Therapy Treatment Education Education Provided Precautions,Safety M7 PT-IP Assessment and Plan Start: 09/30/22: Freq: NEEDED Status: Active Protocol: Document 09/30/22 10:00 AB (Rec: 09/30/22 12:34 AB [id number]) PT Summary Assessment and Plan Potential Rehabilitation Potential Fair Status of Condition at Evaluation Evolving Summary Impairments Pain,ROM,Strength,Balance, Coordination,Sensation,Tone, Cognition,Bed Mobility, Transfers,Gait,Activity Tolerance Assessment Summary pt requiring CGA to min A with mobility using FWW and presents with unsteady gait. caregiver training set up this afternoon at 1 pm and will assess progress. Pt does not have any DME at home and wanting to purchase from [facility] through the hospital. will requested for orders and dispense when pt d/ c. will continue to assess progress. Goals Bed Mobility Goal Independent Transfer Goal Independent,Front Wheeled Walker Gait Goal Independent,Front Wheel Walker Gait Distance 200 Other Goals up/down 2 steps SPC/WHEEL ADJUSTER CGA Days to Meet Goals 10 Frequency of Treatment Frequency Of Treatment Twice a Day Treatment Plan Physical Therapy Treatment Plan Bed Mobility Training,Transfer Training,Gait Training, Therapeutic Exercise,Balance Retraining,Post Op Education, Discharge Planning,Hot or Cold Pack,Neuromuscular Re-ed, Coordination Retraining,Manual Therapy Other Recommendations and Next Treatment caregiver training 09/30/22 at [facility] 1 pm Precautions Lumbar Precautions Log Roll,No Twisting,Limit Bending,Lifting Restriction of 10 lbs,Gait Belt above Incisional Area Recommendations To Nursing Amount of Assist Needed 1 Person Assist Discharge Recommendations PT Discharge Recommendations Home with Assistance, Outpatient PT Equipment Needed for Home Before FWW Discharge Transportation Needs at Discharge Private Vehicle
[2022-09-30] MEDS: INFLUENZA HD VACCINE 0.7 ML SYRINGE IM (11:15)
--- NOTE | 2022-09-30 13:52 | PT.IPTN ---
Current Diagnoses Spinal stenosis, lumbar region with neurogenic claudication (09/29/22) Postlaminectomy syndrome, not elsewhere classified (09/29/22) Surgery Performed Operation Date: 09/29/22 14:15 Actual Procedures p L4-5 TLIF - Yun Handy MD Physical Therapy Treatment Note M2 PT-IP Current Condition Start: 09/30/22 12:22 Freq: NEEDED Status: Active Protocol: Document 09/30/22 10:00 AB (Rec: 09/30/22 12:34 AB [email or web address]) Physical Therapy Current Condition Current Condition Evaluation Date 09/30/22 Treatment Diagnosis s/p L4-5 TLIF; difficulty in walking Onset Date 09/29/22 M3 PT-IP Subjective Start: 09/30/22 12:22 Freq: NEEDED Status: Active Protocol: Document 09/30/22 13:12 [place] (Rec: 09/30/22 14:22 [facility] [id number]) Subjective Physical Therapy Visit Type Type Treatment Note Visit Start Time 13:12 Visit Stop Time 13:52 Total Visit Minutes 40 Notes present for caregiver training Number of DIRECTOR OF THERAPY SERVICES Visits 1 Physical Therapy Visit Comments Patient Comments agreeable to do PT M4 PT-IP Mobility and Gait Start: 09/30/22 12:22 Freq: NEEDED Status: Active Protocol: Document 09/30/22 13:12 [place] (Rec: 09/30/22 14:22 [facility] [id number]) PT-Bed Mobility Assessment Rolling Level of Assist Standby Assistance Supine to Sit Supine to Sit Contact Guard Assistance Sit to Supine Sit to Supine Contact Guard Assistance Scooting Scooting to Edge of Bed Standby Assistance PT-Transfer Assessment Sit to and From Stand Sit to and from Stand Contact Guard Assistance,1 Person Assistance,Use of Upper Extremities Equipment Transfer Assistive Device Gait Belt,Front Wheeled Walker Orthotic/Prosthetic Devices or Brace: No Transfers Transfer Destination Bed Transfer Technique ambulated Transfer Ability Level of Assist Standby Assistance,Contact Guard Assistance,1 Person Assistance,Use of Upper Extremities Comments Mobility Comments Pt in bed w/ in room upon arrival. Able to recall 3/3 spinal precautions. SBA to CGA for logroll/bed mobility w/ cues. Demonstrated gait belt application and how to assist w/ STS to pts , who was able to apply and provide CGA w/ FWW securing. Pt ambulated ~80 ft in room, voided, maintaine dstanding balance at sink for hand hygiene, and then ascended/descended 2 steps w/ L rail and SBA before returning to bed. was able to assist as needed. Pt left in bed w/ all needs in reach. Gait Assessment Gait Gait Assistance Required: Standby Assistance,1 Person Assist Distance (Feet) 80 Able to Maintain Weight Bearing Status Yes During Gait Assistive Devices Assistive Device Gait Belt,Front Wheeled Walker Orthotic/Prosthetic Devices or Brace: No Gait Deviations General Gait Pattern Antalgic,Decreased Stride Length,Decreased Feet Clearance,Step-to Gait Factors Limiting Gait Function Factors Limiting Gait Function Decreased Activity Tolerance, Decreased Strength,Difficulty Following Directions,Limited Range of Motion,Pain,Poor Balance,Poor Safety Awareness Comments Gait Comments Cues for upright posture w/ glute activation Stair Climbing Assessment Evaluation Level of Assist On Stairs Standby Assistance,1 Person Assistance Devices Stair Climbing Assistive Devices Left Railing Technique/Endurance Stair Climbing Direction Ascend and Descend Stair Climbing Technique Step to Step Number of Steps Climbed 1 Stair Climbing Set # Repetitions (reps) 2 Comments Stair Climbing Comments ascended/descended 2 steps w/ L rail step to pattern SBA. PT-Balance Assessment Sitting Balance and Reactions Static Sitting Balance Ability Good Dynamic Sitting Balance Ability Good Standing Balance and Reactions Static Standing Balance Ability Good Dynamic Standing Balance Ability Fair Device Used FWW M5 PT-IP Objective Assessments Start: 09/30/22 12:22 Freq: NEEDED Status: Active Protocol: Document 09/30/22 10:00 AB (Rec: 09/30/22 12:34 AB [id number]) Orientation Orientation/Cognition Level of Alertness Alert Orientation Name,Place,Situation Language Function Ability Hard of Hearing Safety Awareness Decreased Safety Awareness Memory Description Short Term Impaired Gross Range of Motion Lower Extremity ROM Assessment Within Functional Limits Strength Lower Extremity Strength Assessment Within Functional Limits Coordination Assessment Gross Coordination Gross Coordination WNL Sensation Assessment Sensation Gross Sensation Left LE Impaired Light Touch Impaired Proprioception (Position) Impaired Comments Sensation Comments has peripheral neuropathy Muscle Tone Muscle Tone WNL Yes M6 PT-IP Treatment Start: 09/30/22 12:22 Freq: NEEDED Status: Active Protocol: Document 09/30/22 13:12 [place] (Rec: 09/30/22 14:22 [facility] [id number]) Physical Therapy Treatment Education Education Provided Precautions,Safety Other Treatments Other Treatment Performed Completed caregiver training, dispensed FWW for home use. M7 PT-IP Assessment and Plan Start: 09/30/22 12:22 Freq: NEEDED Status: Active Protocol: Document 09/30/22 13:12 [place] (Rec: 09/30/22 14:22 [facility] [id number]) PT Summary Assessment and Plan Potential Rehabilitation Potential Good Summary Impairments Pain,ROM,Strength,Balance, Coordination,Sensation,Tone, Cognition,Bed Mobility, Transfers,Gait,Activity Tolerance Progress Towards Goals Progressing Toward Goals Assessment Summary Pt SBA to CGA throughout treatment. Successfully completed caregiver training w / pts who was able to assist w/ all needs. Dispensed FWW for home use. Pt ambulated ~80 ft and completed stair training. He will benefit from OPPT when appropriate to improve core and spinal stability. Goals Bed Mobility Goal Independent Transfer Goal Independent,Front Wheeled Walker Gait Goal Independent,Front Wheel Walker Gait Distance 200 Other Goals up/down 2 steps SPC/SURVEY RESEARCH TEACHER CGA Days to Meet Goals 10 Frequency of Treatment Frequency Of Treatment Twice a Day Treatment Plan Physical Therapy Treatment Plan Bed Mobility Training,Transfer Training,Gait Training, Therapeutic Exercise,Balance Retraining,Post Op Education, Discharge Planning,Hot or Cold Pack,Neuromuscular Re-ed, Coordination Retraining,Manual Therapy Other Recommendations and Next Treatment caregiver training 09/30/22 at [facility] 1 pm Precautions Lumbar Precautions Log Roll,No Twisting,Limit Bending,Lifting Restriction of 10 lbs,Gait Belt above Incisional Area Recommendations To Nursing Amount of Assist Needed 1 Person Assist Discharge Recommendations PT Discharge Recommendations Home with Assistance, Outpatient PT Equipment Needed for Home Before FWW Discharge Transportation Needs at Discharge Private Vehicle
--- NOTE | 2022-09-30 14:38 | CM.DANOTE ---
DCP/Assessment: Reviewed chart. Patient is a 72yr old male admitted for elective TLIF performed on 09-29-22. PCP is Alek Vásquez. Primary payor is 1)Medicare 2)[facility]. Met with patient and spouse today. Patient with orders to d/c home today. Spouse here for caregiver training. Initially it was thought patient may need assistance with transport? Per spouse family can coordinate getting patient home today. Asked RESPIRATORY THERAPY AIDE/Britt to check cabulance availability and none available today. P: Home today. KJS Discharge Planning/Care Management CM Discharge Assessment Start: 09/30/22 14:36 Freq: Status: Active Protocol: Document 09/30/22 14:36 KJS (Rec: 09/30/22 14:38 KJS [id number]) Discharge Planning Assessment Assigned Relationship Banker GERMÁN Cerna Contact Information Bernice Stovall (spouse) # Advance Directives? Yes Advance Directives on File No History Provided By Patient,Medical Record Prior Living Arrangements House Household Members spouse Type of transporation used prior to Drives own vehicle admit Independent with ADL's Yes Is patient alert and oriented? Yes Caregiver for Another No DME Already Rented / Owned FWW / Walker Comment Ordered FWW per recommendation from therapy. Barriers to Discharge No Discharge Plan Home Transportation Arrangement Family to provide transport Referrals Initiated None needed Whiteboard Updated in Patient Room with Yes name and ext. # of Relationship Banker Review Status In Process Next Review Type Continued Stay Review Pre-Anesthesia Assessment Start: 09/26/22 07:31 Freq: Status: Active Protocol: Document 09/26/22 07:32 CAB (Rec: 09/26/22 07:39 CAB [id number]) Pre-Anesthesia Assessment PAC Comment Pt is s/p L3-4, 4-5 laminectomy 08/20/22, declined phone PAC assess. No changes in medical/medication history and he had no questions/ concerns with upcoming surgery , chart review only. Patient Information Reviewed Via Chart Review Diagnostic Results BMP/CMP,CBC,EKG Comment Labs/ECG @ 08/02/22, COVID screen @ 09/26/22 Primary Care Provider Alek Vásquez Seen Specialist in Last 12 Months Yes Specialist Seen Orthopedist Primary Language [employer] Laboratory Director Required No Height 190.5 cm Weight 131.542 kg Body Mass Index (BMI) 36.2 Barriers to Learning None Hx Anesthesia Reactions No Hx Family Anesthesia Reaction No Hx Malignant Hyperthermia No Hx Blood Transfusion Reaction No Anesthesia Review Requested No Geometry Professor No alcohol intake current alcohol intake frequency holidays/special occasions only Smoking Status Never smoker Substance Use Type does not use Pain Present Pain Reported Musculoskeletal Symptoms Abnormal Gait,Back Pain,Joint Stiffness,Limited Range of Motion,Numbness,Radiating Pain into Limb History of Falling (Recent or History of No ) Patient is completely paralyzed or No completely immobile Prosthesis or Orthotic Device Wheelchair Mental Status Oriented to own ability Is patient on oxygen? No Hx Sleep Apnea Yes CPAP/BIPAP use prescribed not used Currently Taking a Beta Blaine No Anti-Coagulant Therapy No Cardiac Testing No Hx Pacemaker/ICD No Pacemaker Rep Required? No Urinary Catheter Present No Hx Urinary Self Catheterization No Diabetes No Presence of External or Internal Medical No Devices Received a COVID vaccine? Yes Marital Status Lives With spouse Patient Discharge Plan Description Return Home Do You Have Any Spiritual Beliefs That No May Affect Your HC Choices? Do You Have Any Cultural Practices That No May Affect Your HC Choices? Advance Directives? No
--- NOTE | 2022-09-30 15:14 | PC.NURSE ---
Day shift note: A&Ox4. VSS. Up with OT and PT. Discharge order placed. Up standby with the FWW. Physical therapy performed caregiver education with patient's spouse at bedside. Cleared for discharge. IV discontinued. Discharge paperwork provided with questions answered. Walker ordered and provided to patient for home use. Patient waiting for ride from adult child. Will continue to monitor.
== END 2022-09-30 15:30 | disposition home or self-care (01) | DRG 455 ==
LOC: AC 13:00 → ICU 16:22
PROVIDERS: Admitting Provider Orthopaedic Surgery Orthopaedic Surgery of the Spine; PCP Family Medicine; Referring Provider Orthopaedic Surgery Orthopaedic Surgery of the Spine; Visit Provider Orthopaedic Surgery Orthopaedic Surgery of the Spine
PROC: 0SG00AJ Fusion of Lumbar Vertebral Joint with Interbody Fusion Device, Posterior Approach, Anterior Column, Open Approach (ICD-10-PCS; principal; 2022-09-29 14:15)
DX: M47.816 Spondylosis without myelopathy or radiculopathy, lumbar region (principal); M48.062 Spinal stenosis, lumbar region with neurogenic claudication; N40.0 Benign prostatic hyperplasia without lower urinary tract symptoms; I10 Essential (primary) hypertension; Z23 Encounter for immunization; Z20.822 Contact with and (suspected) exposure to COVID-19
CPT/HCPCS: 36415; 72100; 76000; 82962; 87635; 87797; 90471; 90662; 97116; 97162; 97165; 97530; 97535; C9803; C1713; C1831; C9290; J0131; J0171; J0690; J1170; J2405; J3010; J3410

== ENCOUNTER → 2024-03-16 12:43 | Outpatient (CLI) | payer MEDICARE, SELFPAY ==
[2022-09-29 12:44] VITALS: BMI 36.2
--- NOTE | 2024-03-16 12:46 | DI.MRI.S_ITS ---
PROCEDURE: MR KNEE LT WO CON INDICATIONS: Evaluate meniscus left knee TECHNIQUE: Noncontrast sagittal PD fast spin echo and T2 fast spin echo with fat saturation, sagittal 3-D FLASH with fat saturation; coronal T1 spin echo and PD fast spin echo with fat saturation, and axial PD fast spin echo with fat saturation through the knee. COMPARISON: [facility] [place], CR, XR KNEE 4+ VIEWS LEFT, 03/04/2024, 9:35. FINDINGS: Image quality: Excellent. Menisci: In the medial meniscus, there is oblique tear of the meniscus body. There is mild extrusion of the medial meniscus body. In the lateral meniscus, there is complex tear of the meniscus body, with a small vertical component. There is mild extrusion the lateral meniscus body. There is superior extension of the lateral meniscal body into the superior gutter. Cruciate ligaments: The ACL is intact. The PCL is indistinct in the distal segment, likely representing low-grade tear. Medial structures: The MCL is intact. There is marked tendinosis at the insertion of the semimembranosus. Lateral structures: The lateral collateral ligament, long and short heads of the biceps femoris tendon appear intact. The popliteus tendon appears normal; the popliteofibular ligament appears intact. The posterosuperior and anteroinferior popliteomeniscal fascicles appear intact. The arcuate and fabellofibular ligaments appear intact, on either side of the lateral inferior geniculate artery. Iliotibial band appears normal. Anterior structures: The quadriceps and patellar tendons appear intact. Patellofemoral ligament is unremarkable. Alignment of the patellofemoral ligament is anatomic. Bones and cartilage: There is mild chondral thinning in the lateral patellar facet. Full-thickness high-signal fissuring in the central trochlea. Cartilage of the lateral and medial trochlea are grossly unremarkable. In the medial compartment, there is mild chondral thinning in the weight-bearing portion of the femoral condyle. In the lateral compartment, the cartilage is grossly well maintained. No acute fracture. Joint space: Moderate knee effusion. No popliteal cyst. Popliteal vasculature is unremarkable. IMPRESSION: 1. Tear of the medial and lateral meniscus body. 2. Findings concerning for low grade tear of the distal PCL 3. Marked tendinosis of the insertion of the semimembranosus tendon. 4. Mild chondrosis of the patellofemoral compartment and medial compartment. 5. Moderate knee effusion. Dictated by: Sapphire Rojas M.D. on 03/16/2024 at 14:39 Approved by: Sapphire Rojas M.D. on 03/16/2024 at 14:52
== END ==
LOC: MRI 12:44
PROVIDERS: PCP Family Medicine; Referring Provider Orthopaedic Surgery; Visit Provider Orthopaedic Surgery
DX: S83.272A Complex tear of lateral meniscus, current injury, left knee, initial encounter (principal); S83.242A Other tear of medial meniscus, current injury, left knee, initial encounter; M22.42 Chondromalacia patellae, left knee; M25.462 Effusion, left knee; X58.XXXA Exposure to other specified factors, initial encounter
CPT/HCPCS: 73721